=== PATIENT | female | born 1935 | race Caucasian/White ===

== ENCOUNTER 2016-12-24 05:07 | Emergency (ER) | payer MEDICARE ==
[~2016-12-24] VITALS: Ht 154.9 cm; Wt 68.2 kg
[~2016-12-24 05:07] MED LIST: DIVA250T2 PO; LIP40 PO; OLAN5TAB PO; PANT40TA2 PO; WARF2TAB7 PO; WARF4TAB6 PO
[2016-12-24 05:19] VITALS: BP 154/78; PULSE 95; RESP 14; O2SAT 97
[2016-12-24 05:38] LABS: BASOPHILS % (AUTO) 0.3 % (0-3); EOSINOPHILS % (AUTO) 1.6 % (0-5); Mean Corpuscular Hemoglobin 33.5 pg (27.0-35.0); Mean Corpuscular Volume 97.7 fL (81-100); NEUTROPHILS % (AUTO) 53.7 % (40-74); Platelet Count 115 bil/L (150-400)
[2016-12-24 06:01] LABS: INR 1.41 ratio
--- NOTE | 2016-12-24 06:05 | ED.REPORT ---
HPI-General Illness Date of Service Dec 24, 2016 ED Provider: Miguel Aggarwal DO Patient is an 81 year old female with a hx of thyroid disease, HTN, hyperlipidemia, previous DVT, and renal insufficiency on HD and Warfarin who presents to the ED complaining of increased bilateral leg swelling onset 2-3 weeks ago. She has some baseline leg swelling due to varicose veins but her swelling has increased since she was switched from a blood pressure medication to a diuretic. Associated symptoms include bilateral leg pressure, L>R, and some lower extremity numbness. She denies SOB, cough, chest pain, extremity pain , or any other symptoms. She has R eye surgery on 11/11/16 Nursing Notes Stated Complaint: BILATERAL LEG PAIN Chief Complaint: Extremity Trauma Nursing Notes Reviewed: Yes Allergies: Coded Allergies: codeine (Verified Allergy, Severe, N&V, 10/04/16) lithium (Verified Adverse Reaction, Severe, TOXICITY, 10/04/16) Scheduled Atorvastatin (Lipitor) 40 Mg Tablet 40 MG PO DAILY Divalproex ER (Depakote ER) 250 Mg Tablet 1,000 MG PO HS *DAILY USE ONLY* Swallowed whole without chewing to avoid local irritation of the mouth and throat. Furosemide (Furosemide) 40 Mg Tablet 40 MG PO DAILY Olanzapine (Olanzapine) 5 Mg Tablet 5 MG PO DAILY Pantoprazole DR (Protonix) 40 Mg Tablet 40 MG PO DAILY Warfarin Sodium (Warfarin Sodium) 4 Mg Tablet 4 MG PO X3DAYS/WEEK Warfarin Sodium (Warfarin Sodium) 2 Mg Tablet 2 MG PO X4 DAYS/WEEK General Time Seen by MD: 06:04 Chief Complaint Other (Lower extremity swelling ) Hx Obtained From: Patient, Other family... Arrived By: Walk-in Sudden in Onset?: Yes Onset Occurred: More than a week ago... (2 weeks) Symptom Duration: Since onset Recent Healthcare: Recent doctor visit Past Medical History Past Medical History DVT Lupus Bipolar Spinal stenosis Reports: Hyperlipidemia, Hypertension Reports: Renal insufficiency (on HD ), Thyroid disease Past Surgical History R eye 11/11/16 hernia repair Smoking History Never Smoker Social History Alcohol Use: "Social" Review of Systems +"pressure" in lower extremities Full Review of Systems Respiratory: Denies: Non-productive cough, Shortness of breath Cardiovascular: Denies: Chest pain Musculoskeletal: Reports: Extremity swelling, Denies: Extremity pain Neurologic: Reports: Numbness Complete sys rev & neg: except as marked. Physical Exam Vital Signs Vital Signs Date Time Temp Pulse Resp B/P Pulse Ox O2 Delivery O2 Flow Rate FiO2 12/24/16 08:12 70 14 153/98 97 Room Air 12/24/16 05:19 37 95 14 154/78 97 Room Air Initial VS: Reviewed Neck: Full range of motion Respiratory: No respiratory distress Cardiovascular: Intact distal pulses Skin: Warm, Dry Neurologic: Alert, Oriented, Nonfocal Psychiatric: Mood/affect normal, Behavior normal, Normal thought content General/Constitutional: Awake, Alert, Well developed Head / Eyes: Normocephalic Patch over R eye, s/p surgery Lower Extremity / Pelvis / MS: Non-tender, Neurologic intact, Vascular intact R>L bilat lower extremity edema. Deana stasis changes Feet and anterior tibia are mildly erythematous and warm Interpretation & Diagnostics Lab Results Interpretation Result Diagram: 12/24/16 0530 12/24/16 0530 Test 12/24/16 05:30 12/24/16 06:30 White Blood Count 5.7th/mm3 (3.8-10.1) Red Blood Count 4.33mil/mm3 (3.90-5.20) Hemoglobin 14.5g/dL (12.0-15.6) Hematocrit 42.3% (35.0-46.0) Mean Corpuscular Volume 97.7fL (81-100) Mean Corpuscular Hemoglobin 33.5pg (27.0-35.0) Mean Corpuscular Hemoglobin Concent 34.3% (32.0-37.0) Red Cell Distribution Width 13.2% (12.3-15.4) Platelet Count 115bil/L (150-400) Neutrophils (%) (Auto) 53.7% (40-74) Lymphocytes (%) (Auto) 29.7% (14-46) Monocytes (%) (Auto) 14.0% (4-12) Eosinophils (%) (Auto) 1.6% (0-5) Basophils (%) (Auto) 0.3% (0-3) Prothrombin Time 15.2sec (8.1-12.5) Prothromb Time International Ratio 1.41ratio D-Dimer < 0.50mg/L FEU (<0.50) Sodium Level 137mEq/L (134-144) Potassium Level 4.8mEq/L (3.5-5.2) Chloride Level 98mEq/L (97-108) Carbon Dioxide Level 29mmol/L (18-29) Blood Urea Nitrogen 23mg/dL (8-27) Creatinine 1.20mg/dL (0.57-1.00) Estimat Glomerular Filtration Rate 62mL/min (>59) Glucose Level 114mg/dL (60-99) Calcium Level 9.9mg/dL (8.5-10.1) Total Bilirubin 0.6mg/dL (0.0-1.2) Aspartate Amino Transf (AST/SGOT) 11U/L (0-50) Alanine Aminotransferase (ALT/SGPT) 7U/L (0-32) Alkaline Phosphatase 68U/L (25-165) Pro-B-Type Natriuretic Peptide 376.8pg/mL (0-738) Total Protein 6.6g/dL (6.4-8.4) Albumin 3.3g/dL (3.4-5.0) Hold Peoples Top Tube Received (Received) Hold Urine Received (Received) US Focused Lower Ext Venous Exam Performed by: Allied health pract Exam Type: Diagnostic Exam Interpreted by: Radiologist Interpretation: No evid deep vein thromb Re-Eval/Medical Decision Med Decision/Clinical Course pt presents with subacute progressive lower extremity edema, does not appear to be any life-threatening pathology. Her history of DVT and subtherapeutic INR ultrasound is performed which is negative for DVT. Patient will be discharged in a higher dose of furosemide and return and follow-up precautions. Time of Eval: 08:02 Re-Evaluation/Progress Note: Discussed imaging results and plan for discharge. Patient understands and agrees with plan. All questions addressed at this time. Counseled Regarding: Diagnosis, Lab results, Need for follow-up, When/why to return to ED Discharge & Departure Primary Impression: Peripheral edema Disposition: Home Discharge Condition All VS Reviewed: Yes Condition: Stable Additional Instructions: Your ultrasound was reassuring. Increase your furosemide to 40 mg daily. Use compression stockings and keep your legs elevated. Take 1.5 times your regular dose of warfarin/Coumadin tonight and resume prior dosing. Call the Coumadin clinic Monday morning for further discussion about adjustment of your medication. Call your regular doctor in the next 2 days for a close follow-up appointment. Return to the ER as needed if worse. Referrals: Jair Sanabria MD (PCP) Scribe Attestation Portions of this note were transcribed by Micheal Kathleen. I, Dr. Aggarwal personally performed the history, physical exam and medical decision-making; I reviewed and confirmed the accuracy of the information in the transcribed note. Signed by: Micheal Kathleen 12/24/16, 0802 copies to: Jair Sanabria MD, Timothy S DO Dec 24, 2016 06:05 MICHEAL KATHLEEN Dec 24, 2016 06:21 Signed by: Micheal Kathleen 12/24/16, 0802 copies to: Jair Sanabria MD, Timothy S DO Dec 24, 2016 06:05 MICHEAL KATHLEEN Dec 24, 2016 06:21
[2016-12-24] MEDS ORDERED: FURO40TA4 PO (07:30)
[2016-12-24 08:12] VITALS: BP 153/98; PULSE 70; RESP 14; O2SAT 97
--- NOTE | 2016-12-24 08:30 | DRSVH ---
PROCEDURE: US VENOUS LEG DUPLEX BILATERAL INDICATIONS: BLE history of DVT, subtherapeutic INR TECHNIQUE: Real-time imaging, as well as color and pulse Doppler interrogation, were performed of the deep veins of both legs from the inguinal ligament to the popliteal fossa. COMPARISON: None. FINDINGS: The deep veins are normally compressible, and free of intraluminal thrombus. Color and pu lse Doppler demonstrate normal phasic intravascular flow. There is normal augmentation response to d istal compression maneuver. IMPRESSION: No evidence for deep venous thrombosis is found in the right lower extremity with this d uplex venous Doppler study. No evidence for deep venous thrombosis is found in the left lower extremity with this duplex venous D oppler study. Subcutaneous edema is seen bilaterally. Dictated by: Shiraz Johnson M.D. on 12/24/2016 at 8:27 Approved by: Shiraz Johnson M.D. on 12/24/2016 at 8:28
== END 2016-12-24 08:32 | disposition home or self-care (01) ==
LOC: SED 05:07
DX: R60.0 Localized edema (principal); I10 Essential (primary) hypertension; M32.9 Systemic lupus erythematosus, unspecified; E78.5 Hyperlipidemia, unspecified; Z79.01 Long term (current) use of anticoagulants; Z88.5 Allergy status to narcotic agent; Z88.8 Allergy status to other drugs, medicaments and biological substances